=== PATIENT | male | born 1995 | race Asian ===

== ENCOUNTER 2021-09-25 17:50 | Emergency (ER) | payer OTHER ==
[~2021-09-25] VITALS: Ht 180.3 cm; Wt 104.3 kg
--- NOTE | ~2021-09-25 | EMS ---
[facility] [address] [place] [address] EMS Patient Care Report Name: GLORIA IVEY Room #: DEP PAVITHRA Coon#: [id number] Admission: 09/25/21 Attend Phys: Discharge: 09/25/21 Date of : [birth year] Report #: [id number] THIS REPORT FOR: //name// Report Transmitted: 09/27/2021 10:04 EMS Care Summary [place], [place]/[facility] Incident [id number] @ 09/25/2021 17:06 Incident Location [facility] [place] [address] Patient GLORIA IVEY Male, 26 Years 1995 Patient Address [address] [place] [id number] Patient History Other, Patient Allergies No known allergies, Patient Medications None Reported, Chief Complaint VERTIGO Disposition Transported No Lights/[place] Dispatch Reason Unconscious/Fainting Transported To [facility] Narrative PATIENT REPORTS HE FLEW INTO TOWN 3 DAYS AGO. YESTERDAY AFTER SMOKING HOOKA HE BECAME DIZZY. HE DENIES SOA, CHEST PAIN, N/V/D/ OR ANY OTHER COMPLAINTS. PATIENT DENIES ETOH OR DRUGS. PATIENT STATES TODAY HE WOKE UP, DRANK 1 CUP OF COFFEE ATE BREAKFAST AND THEN PROCEEDED WITH HIS DAY. HE JUST SAT DOWN FOR [facility] [address] [place] [address] EMS Patient Care Report Name: GLORIA IVEY Room #: DEP [facility]#: [id number] Admission: 09/25/21 Attend Phys: Discharge: 09/25/21 Date of : [birth year] Report #: [id number] DINNER AND HAD THE SAME SYMPTOMS LAST NIGHT. HE STATES THIS HAS NEVER HAPPENED BEFORE. HE WAS FOUND SITTING AT A TABLE WITH A FRIEND. HE IS ALERT, APPROPRIATE, HE IS DIAPHORETIC AND SHAKY. HE DENIES ANY LOC, EXCESSIVE CAFFEINE TODAY. HE WAS ASSESSED AND ASSISTED TO THE COT. HE STATES AFTER WE ARRIVED THE SYMPTOMS DISSIPATED BUT WHEN HE STOOD TO WALK TO THE COT HE STARTED TO FEEL SHAKY. PATIENT MOVED TO THE UNIT WHERE HE WAS FULLY ASSESSED. PATIENT TRANSPORTED WITHOUT INCIDENT. RADIO REPORT TO [facility]. PATIENT CARE TRANSFERRED TO RN UPON ARRIVAL TRIAGE Initial Vitals @17:30P: 84,R: 18,Pain: 0/10,GCS: 15,CO: 2,SpO2: 99, @17:14P: 103,R: 22,BP: 150/104,Pain: 0/10,GCS: 15,Glucose: 104,SpO2: 100,Revised Trauma: 12, @17:22P: 85,R: 18,BP: 136/81,Pain: 0/10,GCS: 15,SpO2: 100,Revised Trauma: 12, @17:16P: 91,R: 20,BP: 126/85,Pain: 0/10,GCS: 15,CO: 0,Revised Trauma: 12, @17:32P: 82,R: 18,BP: 139/82,Pain: 0/10,GCS: 15,SpO2: 99,Revised Trauma: 12, Assessments @17:12MENTAL:Event Oriented,Person Oriented,Time Oriented,Place Oriented,SKIN:HEENT:Head/Face: No Abnormalities,Neck/Airway: No Abnormalities,LUNG SOUNDS:General: No Abnormalities,ABDOMEN:General: No Abnormalities,PELVIS//GI:No Abnormalities,EXTREMITIES:Left Arm: No Abnormalities,Right Arm: No Abnormalities,Left Leg: No Abnormalities,Right Leg: No Abnormalities,PULSE:NEURO:No Abnormalities, Impression Dizziness Procedures @17:12 ALS Assessment Response: Unchanged @17:17 3-Lead ECG Response: Unchanged @17:30 12-Lead ECG Timeline 17:05,Call Received 17:05,Dispatch Notified 17:06,Dispatched 17:07,En Route 17:11,On Scene 17:12,At Patient 17:12,ALS Assessment,Response: Unchanged 17:14,BP: 150/104 M,PULSE: 103,RR: 22 R,SPO2: 100 Ox,ETCO2: ,B,PAIN: 0,GCS: 15, 17:16,BP: 126/85 M,PULSE: 91,RR: 20 R,SPO2: Ox,ETCO2: ,BG: ,PAIN: 0,GCS: 15, 17:17,3-Lead ECG,Response: Unchanged [facility] [address] [facility] [address] EMS Patient Care Report Name: CJ [facility]EY[facility] Room #: ANNEMARIE Coon#: [id number] Admission: 09/25/21 Attend Phys: Discharge: 09/25/21 Date of : [birth year] Report #: [id number] 17:22,BP: 136/81 M,PULSE: 85,RR: 18 R,SPO2: 100 Ox,ETCO2: ,BG: ,PAIN: 0,GCS: 15, 17:30,12-Lead ECG, 17:30,BP: / M,PULSE: 84,RR: 18 R,SPO2: 99 Ox,ETCO2: ,BG: ,PAIN: 0,GCS: 15, 17:32,BP: 139/82 M,PULSE: 82,RR: 18 R,SPO2: 99 Ox,ETCO2: ,BG: ,PAIN: 0,GCS: 15, 17:33,Depart Scene 17:40,At Destination 18:08,Call Closed Disclaimer v1.1 Copyright 2020 [employer] This EMS Care Summary contains data elements from the applicable legal record (which may be displayed differently). It is designed to provide pertinent information for the following purposes: continuity of care, clinical quality, and state data reporting. The complete legal record is available to ED staff and administrators of the receiving hospital in [employer] Patient Tracker. All data is provided "as is."
[2021-09-25 22:04] LABS: ABSOLUTE NEUTROPHILS 6.8 thou/uL (1.4-8.2); BASOPHILS 0.6 % (0.0-2.0); EOSINOPHILS 0.6 % (0.0-3.0); HEMATOCRIT 43.4 % (42.0-52.0); LYMPHOCYTES 25.4 % (24.0-44.0); MCH 28.7 pg (26.0-34.0); MCHC 34.5 g/dL (28.0-37.0); MCV 83.4 fL (80.0-100.0); PLATELET COUNT 355 thou/uL (150-400); POLYS 67.4 % (36.0-66.0); RDW 13.9 % (10.5-14.5); WBC 10.1 thou/uL (4.0-11.0)
[2021-09-25 22:35] LABS: CREATININE 1.1 mg/dL (0.7-1.3); POTASSIUM 4.5 mmol/L (3.5-5.1)
[2021-09-25 22:41] LABS: TOTAL BILIRUBIN 0.3 mg/dL (0.2-1.0); TOTAL PROTEIN 8.3 g/dL (6.4-8.2)
[2021-09-25 23:52] VITALS: BP 157/71
--- NOTE | 2021-09-26 10:24 | EKG ---
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
== END 2021-09-25 23:52 | disposition home or self-care (01) ==
LOC: ER 17:50
PROVIDERS: Emergency Medicine; Nurse Practitioner
DX: R55 Syncope and collapse (principal); Z98.890 Other specified postprocedural states